=== PATIENT | male | born 2000 | race Caucasian/White ===

== ENCOUNTER 2021-09-26 18:29 | Emergency (ER) | payer OTHER ==
[2021-09-26] MEDS ORDERED: Sodium Chloride 0.9% 1,000 ML IV ONE (19:06)
[2021-09-26] MEDS ORDERED: Ondansetron 4 MG/2 ML SDV IVPUSH ONE (19:06)
[2021-09-26] MEDS ORDERED: Sodium Chloride 0.9% 10 ML Syringe FLUSH PRN (19:06)
[2021-09-26] MEDS ORDERED: Loperamide 2 MG Cap PO ONE (19:27)
--- NOTE | 2021-09-26 19:41 | EDM.PDOC ---
ED HPI GENERAL MEDICAL PROBLEM - General Chief Complaint: Gastrointestinal Problem Stated Complaint: COVID+ NAUSEA Time Seen by Provider: 09/26/21 19:06 Source of Information: Reports: Patient, RN Notes Reviewed History Limitations: Reports: No Limitations - History of Present Illness INITIAL COMMENTS - FREE TEXT/NARRATIVE: Patient is a 21-year-old male who presents to the ER for evaluation of his nausea and vomiting/diarrhea associated with COVID-19. States that he began to feel ill Wednesday, and was tested Wednesday and positive for COVID-19. States that since then he has not been able to keep anything down for food or fluids much at all, and also has been having multiple bouts of diarrhea. He has a dry intermittent cough, and has had an on and off fever as well. States that it was as high as 104 F today, he took a cool bath and some Tylenol around 3 PM and this did help decrease the fever. Patient is in no respiratory difficulty and O2 sats are 94 to 95% on room air. Patient denying any past medical history. Does not have a primary care provider. Was not vaccinated for COVID-19. - Related Data Allergies Allergy/AdvReac Type Severity Reaction Status Date / Time No Known Allergies Allergy Verified 09/26/21 18:51 Home Meds: Home Meds Codeine/Promethazine [Phenergan with Codeine] 5 ml PO Q4HR PRN #120 ml 09/26/21 [Rx] Ondansetron [Zofran ODT] 4 mg PO Q8H PRN #15 tab.dis 09/26/21 [Rx] Past Medical History - Past Health History Medical/Surgical History: Denies Medical/Surgical History - Infectious Disease History Infectious Disease History: Reports: Novel Coronavirus (09/22/21) ED ROS GENERAL - Review of Systems Review Of Systems: Comprehensive ROS is negative, except as noted in HPI. ED EXAM, GI/ABD - Physical Exam Exam: See Below Exam Limited By: No Limitations General Appearance: Alert, WD/WN, No Apparent Distress Respiratory/Chest: No Respiratory Distress, Lungs Clear, Normal Breath Sounds, No Accessory Muscle Use, Chest Non-Tender Cardiovascular: Normal Peripheral Pulses, Regular Rate, Rhythm, No Edema GI/Abdominal Exam: Normal Bowel Sounds, Soft, Non-Tender, No Distention, No Mass Extremities: Normal Inspection, Normal Capillary Refill Neurological: Alert, Oriented, Normal Cognition, No Motor/Sensory Deficits Psychiatric: Normal Affect, Normal Mood Skin Exam: Warm, Dry, Intact, Normal Color, No Rash Course - Vital Signs Last Recorded V/S: Last Vital Signs Temp 98 F 09/26/21 18:47 Pulse 101 H 09/26/21 18:47 Resp 16 09/26/21 18:47 BP 135/78 09/26/21 18:47 Pulse Ox 94 L 09/26/21 18:47 Orthostatic Blood Pressure [ 96/65 Standing] Orthostatic Blood Pressure [ 118/67 Supine] - Orders/Labs/Meds Orders: Active Orders 24 hr Category Date Time Status Orthostatic Vital Signs [RC] ASDIRECTED Care 09/26/21 19:06 Active Peripheral IV Care [RC] . DIRECTED Care 09/26/21 19:07 Active Chest 1V Frontal [CR] Stat Exams 09/26/21 19:06 Taken Sodium Chloride 0.9% [Saline Flush] Med 09/26/21 19:06 Active 10 ml FLUSH ASDIRECTED PRN Peripheral IV Insertion Adult [OM.PC] Routine Oth 09/26/21 19:06 Ordered Medication Orders Sodium Chloride (Sodium Chloride 0.9% 10 Ml Syringe) 10 ml FLUSH ASDIRECTED PRN PRN Reason: Keep Vein Open Last Admin: 09/26/21 19:23 Dose: 10 ml Documented by: PETER Labs: Laboratory Tests 09/26/21 09/26/21 Range/Units 19:20 19:20 WBC 2.17 L* (4.23-9.07) K/mm3 RBC 5.93 (4.63-6.08) M/mm3 Hgb 17.6 H (13.7-17.5) gm/dl Hct 50.6 (40.1-51.0) % MCV 85.3 (79.0-92.2) fl MCH 29.7 (25.7-32.2) pg MCHC 34.8 (32.2-35.5) g/dl RDW Std Deviation 39.4 (35.1-43.9) fL Plt Count 116 L (163-337) K/mm3 MPV 9.9 (9.4-12.3) fl Neut % (Auto) 53.0 (34.0-67.9) % Lymph % (Auto) 31.3 (21.8-53.1) % [place] % (Auto) 15.7 H (5.3-12.2) % Eos % (Auto) 0 L (0.8-7.0) Baso % (Auto) 0.0 L (0.1-1.2) % Neut # (Auto) 1.15 L (1.78-5.38) K/mm3 Lymph # (Auto) 0.68 L (1.32-3.57) K/mm3 [place] # (Auto) 0.34 (0.30-0.82) K/mm3 Eos # (Auto) 0.00 L (0.04-0.54) K/mm3 Baso # (Auto) 0.00 L (0.01-0.08) K/mm3 Sodium 131 L (136-145) mEq/L Potassium 3.3 L (3.5-5.1) mEq/L Chloride 97 L (98-107) mEq/L Carbon Dioxide 25 (21-32) mEq/L Anion Gap 12.3 (5-15) BUN 19 H (7-18) mg/dL Creatinine 1.3 (0.7-1.3) mg/dL Est Cr Clr Drug Dosing TNP Estimated GFR (MDRD) > 60 (>60) mL/min BUN/Creatinine Ratio 14.6 (14-18) Glucose 128 H (70-99) mg/dL Calcium 8.8 (8.5-10.1) mg/dL Total Bilirubin 0.8 (0.2-1.0) mg/dL AST 30 (15-37) U/L ALT 33 (16-63) U/L Alkaline Phosphatase 55 (46-116) U/L C-Reactive Protein 5.2 H* (<1.0) mg/dL Total Protein 7.7 (6.4-8.2) g/dl Albumin 4.0 (3.4-5.0) g/dl Globulin 3.7 gm/dL Albumin/Globulin Ratio 1.1 (1-2) Meds: Medications Generic Name Dose Route Start Last Admin Trade Name Freq PRN Reason Stop Dose Admin Sodium Chloride 10 ml 09/26/21 19:06 09/26/21 19:23 Sodium Chloride 0.9% 10 Ml Syringe FLUSH 10 ml ASDIRECTED PRN Administration Keep Vein Open Discontinued Medications Generic Name Dose Route Start Last Admin Trade Name Isreal PRN Reason Stop Dose Admin Sodium Chloride 1,000 mls @ 999 mls/hr 09/26/21 19:06 09/26/21 19:22 Normal Saline IV 09/26/21 20:06 999 mls/hr ONETIME ONE Administration Loperamide HCl 4 mg 09/26/21 19:27 09/26/21 20:29 Loperamide 2 Mg Cap PO 09/26/21 19:28 4 mg ONETIME ONE Administration Ondansetron HCl 4 mg 09/26/21 19:06 09/26/21 19:22 Ondansetron 4 Mg/2 Ml Sdv IVPUSH 09/26/21 19:07 4 mg ONETIME ONE Administration - Re-Assessments/Exams Free Text/Narrative Re-Assessment/Exam: 09/26/21 19:27 Patient presents to the ER for evaluation of his nausea vomiting/diarrhea and COVID-19. Go ahead and get a chest x-ray some basic labs, give some IV fluids, some Zofran for ongoing management. We can give him 1 dose of loperamide in the ER. 09/26/21 20:27 Labs are fairly unremarkable, white count slightly low due to viral process. CRP is elevated at 5. Metabolic panel shows mild decrease in potassium at 3.3, this is likely diet, chest x-ray demonstrates no obvious sign of any co nsolidation. Reviewed by myself and Dr. Mathis. Official radiology read is still pending. We will go ahead and reassess the patient at this time to see if he should need any more fluids, and see if his nausea is any better. Departure - Departure Time of Disposition: 20:37 Disposition: Home, Self-Care 01 Condition: Good Clinical Impression: COVID-19 - Discharge Information *PRESCRIPTION DRUG MONITORING PROGRAM REVIEWED*: No *COPY OF PRESCRIPTION DRUG MONITORING REPORT IN PATIENT ALBERTO: No Prescriptions: Codeine/Promethazine [Phenergan with Codeine] 5 ml PO Q4HR PRN #120 ml PRN Reason: Cough Ondansetron [Zofran ODT] 4 mg PO Q8H PRN #15 tab.dis PRN Reason: Nausea Instructions: 10 Things You Can Do to Manage Your COVID-19 Symptoms at Home - [facility] (06/06/2021) Referrals: PCP,None [Primary Care Provider] - Forms: ED Department Discharge Additional Instructions: You were seen in the ER today for ongoing COVID-19 symptoms. Your chest x-ray showed no signs of pneumonia at this time. Your oxygen levels were great at 94-95% on room air. All other labs were in line for ongoing COVID-19 infection. You were given some IV fluids, some IV nausea meds and this seemed to help relieve most your symptoms. You were given a prescription for this antinausea med you will need to take this 1 tablet dissolvable under your tongue every 8 hours as needed for ongoing nausea. You were also given a prescription for cough medication you may take 5 to 10 mL p.o. every 4-6 hours as needed for ongoing cough. This medication was electronically sent to the [place] pharmacy located in the [employer] [facility]. Please try to increase your oral fluid intake, and eat multiple small meals throughout the day, to keep yourself healthy. You need to keep yourself nourished in order to fight off this disease. You can try a liquid diet like g atorade/powerade as well to get your electrolytes. You may take 500 mg Tylenol every hours 6 hours for pain/fever relief. Do not exceed 4000 mg Tylenol in a 24-hour time span. However, running a fever is your body's natural response to illness, and it allows the body to develop antibodies to disease, we are recommending trying to limit the use of Tylenol as much as possible to allow your body's natural immune response. Recommend you obtain a pulse oximeter and monitor your oxygen levels at home, you should place the monitor on your finger, and sit in a calm, quiet position for a few minutes and then record the number that is on the screen. If this consistently below 90% on room air without movement, this would be cause for concern to come back to the hospital for further management of your COVID-19 disease. Please follow all guidance set forth from [facility], regarding isolation purposes for your disease process. General isolation times are 10 days from when you started being symptomatic. Sepsis Event Note (ED) - Evaluation Sepsis Screening Result: No Definite Risk - Focused Exam Vital Signs: Vital Signs Temp Pulse Resp BP Pulse Ox 09/26/21 18:47 98 F 101 H 16 135/78 94 L - My Orders Last 24 Hours: My Active Orders 09/26/21 19:06 Orthostatic Vital Signs [RC] ASDIRECTED Chest 1V Frontal [CR] Stat Sodium Chloride 0.9% [Saline Flush] 10 ml FLUSH ASDIRECTED PRN Peripheral IV Insertion Adult [OM.PC] Routine 09/26/21 19:07 Peripheral IV Care [RC] . DIRECTED - Assessment/Plan Last 24 Hours: My Active Orders 09/26/21 19:06 Orthostatic Vital Signs [RC] ASDIRECTED Chest 1V Frontal [CR] Stat Sodium Chloride 0.9% [Saline Flush] 10 ml FLUSH ASDIRECTED PRN Peripheral IV Insertion Adult [OM.PC] Routine 09/26/21 19:07 Peripheral IV Care [RC] . DIRECTED
--- NOTE | 2021-09-27 12:42 | CR ---
Chest: Frontal view of the chest was obtained. Comparison: No prior chest imaging is available. Heart size and mediastinum are normal. Slight density is noted next to the right side of the heart. Difficult to exclude minimal area of pneumonia. Lungs otherwise are clear. Bony structures are unremarkable. Impression: 1. Slight density next to the right heart and difficult to exclude small area of pneumonia. 2. Frontal chest x-ray is otherwise unremarkable. Diagnostic code #3
== END 2021-09-26 20:53 | disposition home or self-care (01) ==
LOC: JD.ED 18:29
DX: U07.1 COVID-19 (principal); R11.2 Nausea with vomiting, unspecified; R19.7 Diarrhea, unspecified
CPT/HCPCS: 36415; 71045; 80053; 85025; 86140; 96374; 99284; A9270; J2405; J7030